=== PATIENT | male | born 1995 | race Caucasian/White ===

== ENCOUNTER 2021-02-20 04:25 | Emergency (ER) | payer MEDICAID ==
[~2021-02-20] VITALS: Ht 167.6 cm; Wt 73.0 kg
[2021-02-20] MEDS ORDERED: HYDROCODONE/ACETAMINOPHEN 5/325MG TABLET PO ONE (04:45)
[2021-02-20] MEDS ORDERED: ACET-2708 MT (06:18)
[2021-02-20 08:04] VITALS: BP 126/78
== END 2021-02-20 08:05 | disposition home or self-care (01) ==
LOC: ER 04:25
DX: M79.672 Pain in left foot (principal); M79.18 Myalgia, other site; Z88.6 Allergy status to analgesic agent
CPT/HCPCS: 29515; 73110; 73610; 73630; 99284